=== PATIENT | male | born 1955 | race Caucasian/White ===

== ENCOUNTER 2020-08-18 16:13 | Emergency (ER) | payer OTHER ==
[2020-08-22] MEDS ORDERED: OXYBUTYNIN CHLO10 MG PO (10:52)
[2020-08-22] MEDS ORDERED: FLOMAX 0.4 MG0.4 MG PO (10:53)
[2020-08-22] MEDS ORDERED: EFFEXOR XR75 MG PO (10:53)
[2020-08-22] MEDS ORDERED: PROSCAR 5 MG TAB5 MG PO (10:53)
[2020-08-22] MEDS ORDERED: RISPERDAL37.5 MG/2 IM (10:54)
[2020-08-22] MEDS ORDERED: RISPERDAL2 MG PO (10:54)
[2020-08-22] MEDS ORDERED: MIRALAX17 GM PO (10:55)
[2020-08-22] MEDS ORDERED: COLACE 100MG C100 MG PO (10:55)
[2020-08-22] MEDS ORDERED: ATIVAN 1MG TABLE1 MG PO (10:55)
== END 2020-08-18 17:09 | disposition home or self-care (01) ==
LOC: ER1 16:13
DX: S63.601A Unspecified sprain of right thumb, initial encounter (principal); Z88.0 Allergy status to penicillin; W19.XXXA Unspecified fall, initial encounter
CPT/HCPCS: 73130; 99283

== ENCOUNTER → 2020-08-22 | Day surgery (SDC) | payer OTHER ==
[~2020-08-22] VITALS: Ht 195.6 cm; Wt 120.7 kg
[~2020-08-22] MED LIST: ATIVAN 1MG TABLE1 MG PO; COLACE 100MG C100 MG PO; EFFEXOR XR75 MG PO; FLOMAX 0.4 MG0.4 MG PO; MIRALAX17 GM PO; OXYBUTYNIN CHLO10 MG PO; PROSCAR 5 MG TAB5 MG PO; RISPERDAL2 MG PO; RISPERDAL37.5 MG/2 IM
[2020-08-22 10:32] LABS: HEMOGLOBIN 14.2 gm/dl (14.0-17.5); RED BLOOD COUNT 4.64 M/UL (4.20-5.50); WHITE BLOOD COUNT 13.6 K/UL (4.5-11.0)
[2020-08-22 10:57] LABS: BUN/CREATININE RATIO 13 (0-10)
== END | disposition home or self-care (01) ==
LOC: OR 09:48
PROVIDERS: Orthopaedic Surgery
DX: S62.501A Fracture of unspecified phalanx of right thumb, initial encounter for closed fracture (principal); F20.9 Schizophrenia, unspecified; F41.8 Other specified anxiety disorders; N40.0 Benign prostatic hyperplasia without lower urinary tract symptoms; W06.XXXA Fall from bed, initial encounter; Y92.003 Bedroom of unspecified non-institutional (private) residence as the place of occurrence of the external cause; Z88.0 Allergy status to penicillin; Z20.822 Contact with and (suspected) exposure to COVID-19; Z79.899 Other long term (current) drug therapy
CPT/HCPCS: 36415; 71045; 73120; 73130; 76000; 80048; 85027; 93005; C1713; J7120